=== PATIENT | male | born 1955 | race Caucasian/White ===

== ENCOUNTER 2023-02-02 01:30 | Day surgery (SDC) | payer MEDICARE, OTHER, SELFPAY ==
[2023-01-25 13:36] VITALS: BMI 25.4
[2023-02-02 06:17] VITALS: BP 144/80; PULSE 77; RESP 18; TEMP 36; O2SAT 99
[2023-02-02] MEDS: LACTATED RINGERS 1,000 ML 150 ML IV CONT (06:19)
--- NOTE | 2023-02-02 07:18 | WPDANESEPPF ---
Anes - Initial Pre Proc Eval Procedure: Operation Date: 02/02/23 07:30 Proposed Procedures p Screening Colonoscopy - Sukhi Sanchez MD Date/Time: 02/02/23 07:18 Surgeon: Sukhi Sanchez MD Pre Op Diagnosis: neoplasm screening Patient Data Age: 67 Gender: M Height: 1.85 m Weight: 87.1 kg Last Vital Signs Temp 96.8 F L 02/02/23 06:17 Pulse 77 02/02/23 06:17 Resp 18 02/02/23 06:17 BP 144/80 H 02/02/23 06:17 Pulse Ox 99 02/02/23 06:17 O2 Del Method Room Air 02/02/23 06:17 Allergies Allergy/AdvReac Type Severity Reaction Status Date / Time codeine Allergy Unknown Violently Verified 02/02/23 06:15 sick Penicillins Allergy Unknown Childhood Verified 02/02/23 06:15 allergy meperidine [From Demerol] AdvReac Intermediate Vomiting Verified 02/02/23 06:15 Home Medications Medication Instructions Recorded Confirmed Type blood sugar diagnostic #10 ea 06/26/19 09/24/22 History lancets 33 gauge (OneTouch Delica #100 ea 06/27/19 09/24/22 Rx Lancets) multivitamin 1 tablet PO DAILY 02/14/20 02/02/23 History fluticasone propionate 50 1 spray intranasal Q12H #16 grams 03/12/21 02/02/23 Rx mcg/actuation nasal spray,suspension (Flonase Allergy Relief) blood sugar diagnostic (OneTouch #100 ea 09/17/21 09/24/22 Rx Verio test strips) atorvastatin 20 mg tablet See Rx Instructions .Route 04/26/22 02/02/23 Rx .COMPLEX #90 tabs alprazolam 0.25 mg tablet (Xanax) 0.25 mg PO DAILY PRN anxiety #10 07/22/22 02/02/23 Rx tabs Patient hx anesthesia problems: none Family hx anesthesia problems: none Results Review: All pre-operative results and documents have been reviewed as part of the pre-operative evaluation. [facility] Past Medical History Medical History Allergies Hyperlipidemia Thrombocytopenia Type 2 diabetes mellitus Family History Family History Sibling Patient's sister is in good health Patient's brother is in good health Father Acute myocardial infarction Hypertension Type 2 diabetes mellitus Mother Type 2 diabetes mellitus Hypertension Social History Social History (Updated 09/23/22 @ 09:55 by Abimbola Gonzalez MA) Smoking status: Never smoker Alcohol intake: current Alcohol use details: social Substance use: never Substance use type: does not use Lack of Transportation: No Lack of Food: Never True Current Housing: I Have Housing Concerned About Future Housing: No Difficulty Paying Gas/Electric Bills: No Difficulty Paying for Meds: No Currently Unemployed: No Education: Master's Degree or Higher Difficulty w/ Childcare or Family Care: No Living arrangements: with family Spiritual care concerns: No Anes - Eval Final PreProcedure Day of Procedure 02/02/23 07:18 Patient weight: normal Heart: regular rate and rhythm Lungs: clear to auscultation Airway: Mallampati scale class II Neurological: alert and oriented Last oral intake: >/= 8 hours ASA classification: II Emergent: no Anesthetic plan: proceed Anesthesia type and monitoring: general GIVS and standard monitoring Results Review: All pre-operative results and documents have been reviewed as part of the pre-operative evaluation. Informed Consent: The patient's anesthetic plan and its attendant risks and benefits were discussed with the patient/family/POA. Questions were solicited and answers provided to the satisfaction of the patient/family/POA.
[2023-02-02 07:50] VITALS: BP 125/82; PULSE 65; RESP 21; O2SAT 97
[2023-02-02 08:00] VITALS: BP 123/80; PULSE 65; RESP 22; O2SAT 98
[2023-02-02 08:10] VITALS: BP 111/76; PULSE 70; RESP 18; O2SAT 96
--- NOTE | 2023-02-06 12:46 | PM.HPGS ---
History of Present Illness History of Present Illness Consent: Risks, benefits, and alternatives have been discussed and questions answered. Patient agrees to proceed with procedure. Chief complaint: neoplasm screening Narrative: Dakotah Weiner is a 67 year old male Who was referred for colon cancer screening. Review of Systems Review of Systems: All systems reviewed & are unremarkable except as noted in HPI and below PMFSH Past Medical History Medical History Allergies Hyperlipidemia Thrombocytopenia Type 2 diabetes mellitus Family History Family History Sibling Patient's sister is in good health Patient's brother is in good health Father Acute myocardial infarction Hypertension Type 2 diabetes mellitus Mother Type 2 diabetes mellitus Hypertension Social History Social History Smoking status: Never smoker Alcohol intake: current Alcohol use details: social Substance use: never Substance use type: does not use Lack of Transportation: No Lack of Food: Never True Current Housing: I Have Housing Concerned About Future Housing: No Difficulty Paying Gas/Electric Bills: No Difficulty Paying for Meds: No Currently Unemployed: No Education: Master's Degree or Higher Difficulty w/ Childcare or Family Care: No Living arrangements: with family Spiritual care concerns: No Meds Home Medications and Allergies Home Medications Medication Instructions Recorded Confirmed Type blood sugar diagnostic #10 ea 06/26/19 09/24/22 History lancets 33 gauge (OneTouch Delica #100 ea 06/27/19 09/24/22 Rx Lancets) multivitamin 1 tablet PO DAILY 02/14/20 02/02/23 History fluticasone propionate 50 1 spray intranasal Q12H #16 grams 03/12/21 02/02/23 Rx mcg/actuation nasal spray,suspension (Flonase Allergy Relief) blood sugar diagnostic (CogniscanTouch #100 ea 09/17/21 09/24/22 Rx Verio test strips) atorvastatin 20 mg tablet See Rx Instructions .Route 04/26/22 02/02/23 Rx .COMPLEX #90 tabs alprazolam 0.25 mg tablet (Xanax) 0.25 mg PO DAILY PRN anxiety #10 07/22/22 02/02/23 Rx tabs Allergies Allergy/AdvReac Type Severity Reaction Status Date / Time codeine Allergy Unknown Violently Verified 02/02/23 06:15 sick Penicillins Allergy Unknown Childhood Verified 02/02/23 06:15 allergy meperidine [From Demerol] AdvReac Intermediate Vomiting Verified 02/02/23 06:15 Exam Resp: Auscultation: clear to auscultation bilaterally Cardio: Rate: regular rate Rhythm: regular rhythm GI: GI Palp: Yes Soft to palpation and No Tenderness to palpation present (GI) Assessment and Plan Assessment and plan (1) Screening for colon cancer: Code(s): Z12.11 - Encounter for screening for malignant neoplasm of colon Status: Acute Assessment and Plan: Colonoscopy with possible biopsy or polypectomy or cautery or injection of substances.
== END 2023-02-02 08:22 | disposition home or self-care (01) ==
PROVIDERS: PCP Internal Medicine; Visit Provider Internal Medicine Gastroenterology
PROC: 0DJD8ZZ Inspection of Lower Intestinal Tract, Via Natural or Artificial Opening Endoscopic (ICD-10-PCS; CPT 45378; principal; 2023-02-02 07:30)
DX: Z12.11 Encounter for screening for malignant neoplasm of colon (principal); K64.8 Other hemorrhoids; E78.5 Hyperlipidemia, unspecified; E11.9 Type 2 diabetes mellitus without complications
CPT/HCPCS: G0121; J2704; J7120

== ENCOUNTER 2024-04-11 15:20 | Emergency (ER) | payer MEDICARE, OTHER, SELFPAY ==
--- NOTE | ~2024-04-11 | XR_ITS ---
EXAM: XR elbow LT min 3V DATE: 04/11/2024 16:16 HISTORY: pain and swelling 2days .no known injury . COMPARISON: None available. FINDINGS: Normal mineralization. No fracture or dislocation. No lytic or blastic lesion. Joint space s are maintained. Olecranon, medial, and lateral epicondylar enthesopathy. No erosion or periosteal c hange. Soft tissue swelling over the olecranon. IMPRESSION: No acute osseous finding the left elbow. Reviewed, dictated and finalized at location K.
[2024-04-11 15:31] VITALS: BP 141/85; PULSE 73; RESP 16; TEMP 36.3; O2SAT 99
--- NOTE | 2024-04-11 15:55 | ED.EXTPRO ---
HPI - Extremity Problem General Chief complaint: Extremity Problem,Nontraumatic Stated complaint: elbow pain Time Seen by Provider: 04/11/24 15:55 Source: patient Mode of arrival: ambulatory Limitations: no limitations History of Present Illness HPI Narrative: 68-year-old male presents with complaint of left elbow pain and swelling for the past 2-3 days. Denies injury but recently went on a fishing trip. Was using upper extremities daily for fishing. Has taken ibuprofen to treat pain. Also has some mild erythema and warmth to left elbow. Decreased range of motion due to pain. All systems reviewed and negative except as noted above. Related Data Home Medications Medication Instructions Recorded Confirmed blood sugar diagnostic #10 ea 06/26/19 04/11/24 multivitamin 1 tablet PO DAILY 02/14/20 04/11/24 Allergies Allergy/AdvReac Type Severity Reaction Status Date / Time codeine AdvReac Intermediate Nausea and Verified 04/11/24 15:27 Vomiting meperidine [From Demerol] AdvReac Intermediate Nausea and Verified 04/11/24 15:27 Vomiting Penicillins AdvReac Unknown Childhood Verified 04/11/24 15:27 allergy Review of Systems Review of Systems: CONSTITUTIONAL: Denies fever, chills, or sweats. EYES: Denies visual changes, redness, or discharge. ENT: Denies rhinorrhea, congestion, sore throat, or otalgia. CARDIOVASCULAR: Denies chest pain, palpitations, or edema. RESPIRATORY: Denies cough or dyspnea. GASTROINTESTINAL: Denies abdominal pain, nausea, vomiting, or diarrhea. GENITOURINARY: Denies dysuria or hematuria. SKIN: Denies rash or itching. MUSCULOSKELETAL: Denies back pain or myalgia. Reports left elbow pain and swelling. NEUROLOGIC: Denies headache, numbness, or weakness. PSYCHIATRIC: Denies anxiety or depression. All other systems reviewed are negative, except as documented in HPI. [facility] Past Medical History Medical History Allergies Hyperlipidemia Thrombocytopenia Type 2 diabetes mellitus Family History Family History Sibling Patient's sister is in good health Patient's brother is in good health Father Acute myocardial infarction Hypertension Type 2 diabetes mellitus Mother Type 2 diabetes mellitus Hypertension Social History Social History Smoking status: Never smoker Alcohol intake: current Alcohol use details: social Substance use: never Substance use type: does not use Do You Feel Safe in your Home?: Yes Lack of Transportation: No Lack of Food: Never True Current Housing: I Have Housing Concerned About Future Housing: No Difficulty Paying Gas/Electric Bills: No Difficulty Paying for Meds: No Currently Unemployed: No Education: Master's Degree or Higher Difficulty w/ Childcare or Family Care: No Living arrangements: with family Spiritual care concerns: No Comments At time of signature, agree with nursing past medical, surgical, social and family history. There is no relevant family history pertinent to the presenting complaint. Exam Narrative: GENERAL: This is a well-nourished, well-developed patient, in no apparent distress. HEAD: normocephalic, atraumatic. EYES: PERRL. Sclera clear/white. Vision is grossly intact. EARS: External ears normal NOSE: External nose normal NECK: Neck supple, non-tender without lymphadenopathy, masses or thyromegaly. CARDIOVASCULAR: Regular rate and rhythm without murmurs, gallops, or rubs. RESPIRATORY: Clear to auscultation. Breath sounds equal bilaterally. No wheezes, rales, or rhonchi. SKIN: warm, Dry, intact with no suspicious lesions or rash, good texture and turgor. NEURO: awake, alert, and oriented to person, place and time. There were no obvious focal neurologic abnormalities. EXTREMITIES: tender to L olecranon pro
== END 2024-04-11 16:31 | disposition home or self-care (01) ==
PROVIDERS: Emergency Provider Nurse Practitioner Family; PCP Clinical Nurse Specialist
DX: M70.22 Olecranon bursitis, left elbow (principal); E78.5 Hyperlipidemia, unspecified; E11.9 Type 2 diabetes mellitus without complications
CPT/HCPCS: 73080; 99213; G0463

== ENCOUNTER 2024-05-25 13:07 | Emergency (ER) | payer MEDICARE, OTHER, SELFPAY ==
--- NOTE | ~2024-05-25 | XR_ITS ---
Left Hand Technique: PA and oblique views were obtained. Clinical History: Laceration Findings: No acute fracture or dislocation is seen. Osseous alignment is anatomic. Joint spaces are p reserved. Soft tissues are unremarkable. Impression: Unremarkable left hand. Reviewed, dictated and finalized at location M. [employer]FF ASSIST[employer] Impression: Unremarkable left hand.
--- NOTE | 2024-05-25 13:09 | ED.UPPEXIN ---
HPI - Extremity Injury (Upper) General Chief Complaint: Extremity Problem,Nontraumatic Stated Complaint: LT Finger injury Time Seen by Provider: 05/25/24 13:08 Source: patient Mode of arrival: ambulatory Limitations: no limitations History of Present Illness HPI narrative: Dakotah is a 68-year-old male patient presenting to the clinic today with complaints of left finger injury. He reports he cut the left middle and 4th distal finger while using a hand trimmer. Tetanus is up today. Patient is actively bleeding but holding pressure. Denies any blood thinner use. States the hedge trimmers are brand new and he was wearing gloves Related Data Home Medications Medication Instructions Recorded Confirmed blood sugar diagnostic #10 ea 06/26/19 05/25/24 multivitamin 1 tablet PO DAILY 02/14/20 05/25/24 Allergies Allergy/AdvReac Type Severity Reaction Status Date / Time codeine AdvReac Intermediate Nausea and Verified 05/25/24 13:20 Vomiting meperidine [From Demerol] AdvReac Intermediate Nausea and Verified 05/25/24 13:20 Vomiting Penicillins AdvReac Unknown Childhood Verified 05/25/24 13:20 allergy Review of Systems Review of Systems: Pertinent positives per HPI. Patient denies any fever, chills, rash, headache, visual changes, dizziness, cough, runny nose, sore throat, shortness of breath, chest pain, palpitations, nausea, vomiting, diarrhea, constipation, abdominal pain, or any urinary issues. [facility] Past Medical History Medical History Allergies Hyperlipidemia Thrombocytopenia Type 2 diabetes mellitus Family History Family History Sibling Patient's sister is in good health Patient's brother is in good health Father Acute myocardial infarction Hypertension Type 2 diabetes mellitus Mother Type 2 diabetes mellitus Hypertension Social History Social History Smoking status: Never smoker Alcohol intake: current Alcohol use details: social Substance use: never Substance use type: does not use Do You Feel Safe in your Home?: Yes Lack of Transportation: No Lack of Food: Never True Current Housing: I Have Housing Concerned About Future Housing: No Difficulty Paying Gas/Electric Bills: No Difficulty Paying for Meds: No Currently Unemployed: No Education: Master's Degree or Higher Difficulty w/ Childcare or Family Care: No Living arrangements: with family Spiritual care concerns: No Comments At the time of my signature, I reviewed and agree with the nursing past medical, surgical, social, and family history. There is no relevant family history pertinent to the patient complaint. Exam Narrative: General: Well-developed, well nourished, in no apparent distress Head: Normocephalic, atraumatic. Cardio: Regular rate and rhythm, s1 and s2 normal, no murmur appreciated. Resp: Clear to auscultation bilaterally, no rhonchi, rales, wheezing or rubs. Integumentary: [place], warm, and dry, intact without lesion, 3 ranging from 1 cm to 0.5 cm lacerations to the left distal lateral volar aspect of the 3rd finger and 1 flap measuring 0.5 cm laceration to the distal volar lateral aspect of the left 4th finger Course Course Emergency Course: Portions of this record may have been created with voice recognition software. Level of Care: Express Care Visit Vital Signs Vital signs: Vital Signs Temperature 36.5 C 05/25/24 13:19 Pulse Rate 87 05/25/24 13:19 Respiratory Rate 16 05/25/24 13:19 Blood Pressure 142/80 H 05/25/24 13:19 Pulse Oximetry 98 05/25/24 13:19 Oxygen Delivery Room Air 05/25/24 13:19 Temperature 36.5 C 05/25/24 13:22 Pulse Rate 87 05/25/24 13:22 Respiratory Rate 16 05/25/24 13:22 Blood Pressure 142/80 H 05/25/24 13:22 Pulse Oximetry 98 05/25/24 13:22 Oxygen Delivery Room Air 05/25/24 13:22 Vital signs reviewed Procedures Laceration Laceration 1: Date: 05/25/24 Site: hand (Third and 4th fingers) Side (If applicable): left Size (cm): 1 Description: linear, flap and clean Depth: simple, single layer Local Anesthetic: lidocaine 1% Amount of anesthesia used (mL): 4 Pre-repair: wound explored and irrigated ====== Skin Level ====== Skin layer closed with: nylon and dermabond Size (cm): 5-0 Number of sutures: 5 Technique: simple, interrupted ====== Subcutaneous Layer ====== ====== Muscle Layer ====== ====== Tendon Layer ====== Dressing: Verbal consent obtained for laceration repair. Risk and benefits explained and patient voiced understanding. Area was cleansed with antiseptic wound wash and sterile normal saline and a 25 gauge needle was then used to instill (4) ml of 1% lidocaine without epi into the medial and lateral medial phalanx creating a digital block. Area was prepped and draped using sterile technique. A 5-0 suture on a p needle was used to place (5) interrupted sutures bringing the wound edges together- well approximated. Patient tolerated procedure well. Sterile dressing applied. MDM - Extremity Injury (Upper) MDM Narrative Medical decision making narrative: At the time of visit patient is resting comfortably on the exam table. Patient appears to be nontoxic. Diagnostics: Left hand x-ray was performed to rule out fracture/foreign body. Plan: Laceration repair was performed in the clinic today. Five interrupted sutures were placed to close the lacerations to the 3rd finger and skin glue was used to close laceration to the 4th finger. Patient tolerated well. Supportive measures were discussed with the patient and they voiced understanding discharge instructions and agrees to treatment plan. Return precautions reviewed Differential Diagnosis Differential diagnosis: Likely other (Finger fracture, laceration, laceration with foreign body) Discharge Plan Discharge Clinical Impression: Laceration of finger of left hand Qualifiers: Encounter type: initial encounter Finger: middle finger Damage to nail status: without damage Foreign body presence: without foreign body Qualified Code(s): S61.213A - Laceration without foreign body of left middle finger without damage to nail, initial encounter Finger laceration Qualifiers: Encounter type: initial encounter Finger: ring finger Damage to nail status: without damage Foreign body presence: without foreign body Laterality: left Qualified Code(s): S61.215A - Laceration without foreign body of left ring finger without damage to nail, initial encounter Patient Disposition: Home, Self-Care Condition: Stable Instructions: Antibiotic Form, Finger Laceration (ED) Additional Instructions: Leave bandage on for 24 hours then may remove and apply band aide covering as needed. Keep wound clean and dry May apply triple antibiotic ointment to the wound twice daily times 48 hours then keep dry Keep the 4th finger dry as we put skin glue on this laceration for closure.-do not apply triple antibiotic ointment or any other ointments/lotions to this area until healed-this will typically take 5-7 days to heal Skin sutures out in 7-10 days. Watch for signs and symptoms of infection-fever, redness, streaking, swelling, purulent discharge, or increase in pain. Follow up with your PCP for suture removal or return to the Express care. Prescriptions: No Action (DME) blood sugar diagnostic Strip See Rx Instructions .ROUTE .MEDSUPPLY Qty: 10 Rx Instructions: Use to test BS one time daily multivitamin Tablet 1 tablet PO DAILY fluticasone propionate [Flonase Allergy Relief] 50 mcg/actuation spray,suspension 1 spray intranasal Q12H Qty: 16 1RF Rx Instructions: administer into each nostril (DME) lancets 33 gauge misc See Rx Instructions .ROUTE .MEDSUPPLY Qty: 100 3RF Rx Instructions: Use to test BS once daily (DME) OneTouch Verio test strips Strip See Rx Instructions .ROUTE .MEDSUPPLY Qty: 100 3RF Rx Instructions: Use to test BS once daily (DME) blood-glucose meter [OneTouch Verio Flex meter] Misc See Rx Instructions .Route Qty: 1 0RF Rx Instructions: Use to check BS once daily. atorvastatin 20 mg tablet See Rx Instructions .ROUTE .COMPLEX Qty: 90 1RF Dose Instruction: Take 1 tablet by mouth once daily Rx Instructions: Take 1 tablet by mouth once daily Follow-up/Referrals: UNKNOWN,DOCTOR [Non-Staff] - Time of Disposition: 14:31 Quality NIHSS Nursing Documentation ED NIHSS nursing documentation: reviewed/agree
[2024-05-25 13:19] VITALS: BP 142/80; PULSE 87; RESP 16; TEMP 36.5; O2SAT 98
[2024-05-25 13:22] VITALS: BP 142/80; PULSE 87; RESP 16; TEMP 36.5; O2SAT 98
[2024-05-25] MEDS: LIDOCAINE HCL 1% LOCAL INJ 2 ML AMPUL 4 ML INFILTRATE (14:08)
== END 2024-05-25 14:40 | disposition home or self-care (01) ==
PROVIDERS: Emergency Provider Nurse Practitioner Family; PCP Internal Medicine
DX: S61.213A Laceration without foreign body of left middle finger without damage to nail, initial encounter (principal); S61.215A Laceration without foreign body of left ring finger without damage to nail, initial encounter; W29.3XXA Contact with powered garden and outdoor hand tools and machinery, initial encounter; E78.5 Hyperlipidemia, unspecified; E11.9 Type 2 diabetes mellitus without complications; D69.6 Thrombocytopenia, unspecified
CPT/HCPCS: 12001; 73130; 99213; G0463; J2003